=== PATIENT | female | born 1995 | race Caucasian/White ===

== ENCOUNTER 2021-11-07 12:48 | Outpatient (CLI) | payer OTHER | END 2021-11-07 12:49 | disposition home or self-care (01) | LOC: CSHULT 12:48 | PROVIDERS: ATTEND Family Medicine | DX: O09.892 Supervision of other high risk pregnancies, second trimester (principal); Z3A.24 24 weeks gestation of pregnancy | CPT/HCPCS: 76805 ==

== ENCOUNTER 2022-02-14 18:00 | Inpatient (IN) | payer OTHER ==
[~2022-02-14 18:00] MED LIST: Bupivacaine 0.25% HCL 30 ML VIAL ONE
[2022-02-14 19:23] VITALS: BMI 39.1
[2022-02-14 19:51] LABS: Hemoglobin 11.2 g/dL (12.0-15.5); Mean Corpuscular HGB CONC 34.8 g/dL (32.0-36.0); Mean Corpuscular Hemoglobin 29.2 pg (27.0-33.0); Mean Corpuscular Volume 84.1 fl (81.6-98.3); Mean Platelet Volume 11.8 fl (7.4-10.4); Platelet Count 297 10x3/uL (150-450); RBC Distribution Width 13.8 % (11.5-14.5); Red Blood Cell (RBC) Count 3.83 10x6/uL (3.90-5.03); White Blood Cell (WBC) Count 9.9 10x3/uL (3.5-10.5)
[2022-02-14 20:23] LABS: HBSAg Index 0.17 S/CO (0-0.99); Hep B Surf Ag Non-Reactive S/CO (NonReactive)
[2022-02-14 20:24] LABS: Syphilis Antibody Nonreactive (Nonreactive); Syphilis Antibody Index 0.03 S/CO (<1.00 Non-Reactive)
[2022-02-14 21:46] LABS: SARS-CoV-2 NAA Rapid Test Not Detected (NotDetected)
[2022-02-14] MEDS ORDERED: Acetaminophen 500 MG TAB PO PRN (23:17)
[2022-02-14] MEDS ORDERED: Diphenoxylate HCl/Atropine Tablet PO PRN (23:17)
[2022-02-14] MEDS ORDERED: Lidocaine 1% (PF) 30 ML VIAL SC PRN (23:17)
[2022-02-14] MEDS ORDERED: Ondansetron PF 4 MG/2 ML Vial IVP PRN (23:17)
[2022-02-14] MEDS ORDERED: Ibuprofen 800 MG TAB PO PRN (23:17)
[2022-02-14] MEDS ORDERED: Misoprostol 200 MCG TAB PR PRN (23:17)
[2022-02-14] MEDS ORDERED: Methylergonovine 0.2 MG/ML VIAL IM PRN (23:17)
[2022-02-14] MEDS ORDERED: HYDROcodone/Acetaminophen 5/325 mg Tablet PO PRN (23:17)
[2022-02-14] MEDS ORDERED: Promethazine HCl 25 MG/ML VIAL IM PRN (23:17)
[2022-02-14] MEDS ORDERED: Carboprost 250 MCG/ML AMP IM PRN (23:17)
[2022-02-14] MEDS ORDERED: hydrALAZINE 20 MG/ML VIAL SLOW IVP PRN (23:17)
[2022-02-14] MEDS ORDERED: Butorphanol Tartrate 1 MG/ML VIAL SLOW IVP PRN (23:17)
[2022-02-14] MEDS ORDERED: NS w/ Oxytocin 30 units 500 ML IV SCH (23:30)
[2022-02-14] MEDS: Lactated Ringer's 1,000 ML IV SCH (23:34)
[2022-02-14] MEDS: Misoprostol 100 MCG TAB VAG SCH (23:35)
[2022-02-15] MEDS: Misoprostol 100 MCG TAB VAG SCH ×3 (06:11→19:04)
[2022-02-15] MEDS ORDERED: Fentanyl 2 mcg/Bup 0.1% Cadd 100 ML ONE (07:01)
[2022-02-15] MEDS ORDERED: ePHEDrine Sulfate 50 MG/10 ML VIAL SLOW IVP PRN (07:43)
[2022-02-15] MEDS ORDERED: Acetaminophen 325 MG TAB PO PRN (07:43)
[2022-02-15] MEDS ORDERED: Promethazine HCl 25 MG/ML VIAL IM PRN ×2 (07:43→14:03)
[2022-02-15] MEDS ORDERED: Moisturizing Cream (Eucerin) 113 GM JAR TOP PRN (07:43)
[2022-02-15] MEDS ORDERED: Ondansetron PF 4 MG/2 ML Vial IVP PRN ×2 (07:43→14:03)
[2022-02-15] MEDS ORDERED: diphenhydrAMINE 50 MG/ML VIAL IVP PRN (07:43)
[2022-02-15] MEDS ORDERED: Naloxone HCl 0.4 mg/ml Vial IVP PRN ×2 (07:43)
[2022-02-15] MEDS ORDERED: Communication Order-Pharmacy FS SCH (07:45)
[2022-02-15] MEDS ORDERED: Fentanyl 2 mcg/Bupivacaine 0.1% Cassette 100 ML EPIDURAL SCH (07:45)
[2022-02-15] MEDS ORDERED: Lactated Ringer's 500 ML IV PRN (07:50)
[2022-02-15] MEDS: Lactated Ringer's 1,000 ML IV SCH (07:53)
[2022-02-15] MEDS ORDERED: Boostrix 0.5 ML (Tdap) VIAL (>/=7 yrs of age) IM ONE (14:03)
[2022-02-15] MEDS ORDERED: Bisacodyl 10 MG SUPP PR PRN (14:03)
[2022-02-15] MEDS ORDERED: diphenhydrAMINE 25 MG CAP PO PRN (14:03)
[2022-02-15] MEDS ORDERED: hydrALAZINE 20 MG/ML VIAL SLOW IVP PRN (14:03)
[2022-02-15] MEDS ORDERED: Milk Of Magnesia 30 ML UDCUP PO PRN (14:03)
[2022-02-15] MEDS ORDERED: Benzocaine-Menthol 82.5 ML CAN TOP PRN (14:03)
[2022-02-15] MEDS ORDERED: Lanolin Ointment 7 GM TUBE TOP PRN (14:03)
[2022-02-15] MEDS ORDERED: Ibuprofen 800 MG TAB PO SCH (15:00)
[2022-02-15] MEDS: HYDROcodone/Acetaminophen 5/325 mg Tablet PO PRN ×2 (16:21→21:43)
[2022-02-15] MEDS: Ferrous Sulfate 325 MG TAB PO SCH (17:27)
[2022-02-15] MEDS: Ibuprofen 800 MG TAB PO SCH (21:26)
[2022-02-15] MEDS: Docusate 100 MG CAP PO SCH (21:28)
[2022-02-16] MEDS: HYDROcodone/Acetaminophen 5/325 mg Tablet PO PRN ×2 (05:35→11:28)
[2022-02-16] MEDS: Ibuprofen 800 MG TAB PO SCH ×2 (05:36→12:55)
[2022-02-16] MEDS: Ferrous Sulfate 325 MG TAB PO SCH (07:15)
[2022-02-16] MEDS: Docusate 100 MG CAP PO SCH (07:43)
[2022-02-16] MEDS ORDERED: Prenatal Vitamin 1 TAB PO SCH (09:00)
[2022-02-16 11:17] VITALS: BP 123/84; TEMP 98.4
== END 2022-02-16 13:30 | disposition home or self-care (01) | DRG 807 ==
LOC: CSHLD 18:23 → CSHPED 02-15 13:20
PROVIDERS: ADMIT Family Medicine; ATTEND Family Medicine
PROC: 10907ZC Drainage of Amniotic Fluid, Therapeutic from Products of Conception, Via Natural or Artificial Opening (ICD-10-PCS; 2022-02-14)
PROC: 3E0P7VZ Introduction of Hormone into Female Reproductive, Via Natural or Artificial Opening (ICD-10-PCS; 2022-02-14)
PROC: 10E0XZZ Delivery of Products of Conception, External Approach (ICD-10-PCS; principal; 2022-02-15)
DX: O24.420 Gestational diabetes mellitus in childbirth, diet controlled (principal); Z37.0 Single live birth; Z3A.39 39 weeks gestation of pregnancy; O69.81X0 Labor and delivery complicated by cord around neck, without compression, not applicable or unspecified; Z20.822 Contact with and (suspected) exposure to COVID-19
CPT/HCPCS: 36415; 36416; 51702; 85027; 86780; 86850; 86900; 86901; 87340; J2590; J7120; S0020; U0002